=== PATIENT | male | born 1980 | race Caucasian/White ===

== ENCOUNTER 2018-10-18 21:50 | Emergency (ER) | payer SELFPAY ==
[~2018-10-18] VITALS: Ht 172.7 cm; Wt 68.0 kg
[2018-10-18 21:57] VITALS: BP 116/90
[2018-10-19] MEDS ORDERED: KETOROLAC TROMETH 60MG/2ML VIAL IM ONE (01:15)
[2018-10-19] MEDS ORDERED: TETANUS-DIPTH-ACEL PERTUSSIS 0.5ML SYRG IM ONE (01:15)
[2018-10-19] MEDS ORDERED: NEOMYCIN-BACITRACIN-POLYM 15GM TOP OINT TOP SCH (02:00)
== END 2018-10-19 02:17 | disposition home or self-care (01) ==
LOC: EDBD 21:50 → ER 21:57
DX: S20.212A Contusion of left front wall of thorax, initial encounter (principal); S80.812A Abrasion, left lower leg, initial encounter; V28.4XXA Motorcycle driver injured in noncollision transport accident in traffic accident, initial encounter; Y93.89 Activity, other specified; Y99.8 Other external cause status; Y92.89 Other specified places as the place of occurrence of the external cause
CPT/HCPCS: 71101; 73590; 90471; 90715; 96372; 99283; J1885

== ENCOUNTER 2018-11-27 10:54 | Emergency (ER) | payer OTHER ==
[~2018-11-27] VITALS: Ht 182.9 cm; Wt 68.0 kg
[2018-11-27 11:27] LABS: Basophils # (auto) 0 uL; Basophils % (auto) 0.4 % (0.0-2.0); Eosinophils # (auto) 0.2 uL; Hematocrit 44.1 % (41.0-53.0); Lymphocytes # (auto) 1.6 uL; Lymphocytes % (auto) 18.2 % (10.0-50.0); Mean Corpuscular Hemoglobin 32.9 pg (28.0-32.0); Mean Corpuscular Volume 96.7 fL (80.0-100.0); Monocytes # (auto) 0.7 uL; Monocytes % (auto) 7.9 % (0.0-12.0); Neutrophils # (auto) 6.3 uL; Neutrophils % (auto) 71.5 % (37.0-80.0); Nucleated Red Blood Cells % 0.1 %; Platelet Count (auto) 278 10^3/uL (140-450); Red Blood Cells 4.56 10^6/uL (4.5-5.90); Red Cell Distribution Width 13.1 % (11.8-14.3); White Blood Cell 8.8 10^3/uL (4.4-10.8)
[2018-11-27 11:39] LABS: Alanine Aminotransferase 23 U/L (16-61); Albumin 3.9 g/dL (3.4-5.0); Anion Gap 9 (5-15); Blood Alcohol < 3.0 mg/dL (0-5); Blood Urea Nitrogen 13 mg/dL (7-18); Calcium 9.5 mg/dL (8.5-10.1); Carbon Dioxide 27 mmol/L (21-32); Chloride 106 mmol/L (98-107); Glucose 111 mg/dL (74-106); Potassium 3.4 mmol/L (3.5-5.1); Sodium 142 mmol/L (136-145)
[2018-11-27 11:41] LABS: Salicylate < 1.7 mg/dL (2.8-20.0)
[2018-11-27 11:42] LABS: Alkaline Phosphatase 91 U/L (45-117); Aspartate Aminotransferase 11 U/L (15-37); BUN/Creatinine Ratio 15.1; Bilirubin, Total 0.5 mg/dL (0.2-1.0); GFR African American 129 mL/min; GFR Non-African American 107 mL/min; Total Protein 7.5 g/dL (6.4-8.2)
[2018-11-27 12:04] LABS: Acetaminophen < 2.0 ug/mL (10-30)
[2018-11-27 12:57] LABS: Amphetamine Screen, Urine POSITIVE (NEGATIVE); Barbiturate Scree,Urine NEGATIVE (NEGATIVE); Benzodiazephine Screen, Urine POSITIVE (NEGATIVE); Cannabinoid Screen, Urine POSITIVE (NEGATIVE); Cocaine Screen, Urine NEGATIVE (NEGATIVE); Opiate Scree,Urine NEGATIVE (NEGATIVE); Phencyclidine Screen, Urine NEGATIVE (NEGATIVE)
[2018-11-27 13:40] LABS: Urine Bacteria NONE SEEN /hpf (None Seen); Urine Blood Negative /uL (Negative); Urine Mucus FEW (None Seen); Urine Specific Gravity 1.034 (1.001-1.035); Urine Sperm PRESENT /hpf (None Seen); Urine WBC 1 /hpf (0 - 3)
[2018-11-27] MEDS: OLANZapine 5 MG TAB PO PRN (17:57)
[2018-11-27] MEDS: LORazepam 0.5 MG TAB PO PRN (17:57)
[2018-11-28] MEDS ORDERED: DULoxetine HCL 30 MG CAP PO ONE (09:00)
[2018-11-28] MEDS: LORazepam 0.5 MG TAB PO PRN ×2 (09:08→20:49)
[2018-11-28] MEDS: OLANZapine 5 MG TAB PO PRN ×2 (09:08→20:49)
[2018-11-29] MEDS: LORazepam 0.5 MG TAB PO PRN (09:46)
[2018-11-29] MEDS ORDERED: DULoxetine HCL 30 MG CAP PO ONE (10:07)
[2018-11-29] MEDS: OLANZapine 5 MG TAB PO PRN (10:11)
[2018-11-29] MEDS: DULoxetine HCL 30 MG CAP PO SCH ×2 (10:11→10:12)
[2018-11-29 11:19] VITALS: BP 120/74
== END 2018-11-29 11:49 | disposition home or self-care (01) ==
LOC: EDBD 10:54 → ER 10:58
DX: R44.3 Hallucinations, unspecified (principal); F41.9 Anxiety disorder, unspecified; F31.9 Bipolar disorder, unspecified; F12.10 Cannabis abuse, uncomplicated; F15.10 Other stimulant abuse, uncomplicated
CPT/HCPCS: 36415; 80053; 80307; 80320; 80329; 81001; 85025; 93005